=== PATIENT | female | born 1955 | race Caucasian/White ===

== ENCOUNTER → 2016-07-22 | Outpatient (CLI) | payer MEDICARE, OTHER ==
[~2016-07-22] VITALS: Ht 144.8 cm; Wt 67.5 kg
[~2016-07-22] MED LIST: AMIO200T2 PO; ATOR20TA86 PO; CALC667C PO; CHOL10002 PO; FOLI1CAP24 PO; FOLI1TAB15 PO; OMEP20 PO; SITA25 PO; SODI650T PO; WARF1 PO
[2016-07-22 14:59] VITALS: BP 130/66
== END | disposition home or self-care (01) ==
LOC: SRCNTR 14:49
PROVIDERS: ATTEND Internal Medicine Cardiovascular Disease
DX: E11.9 Type 2 diabetes mellitus without complications (principal); N18.6 End stage renal disease; I48.0 Paroxysmal atrial fibrillation; Z99.2 Dependence on renal dialysis; Z95.0 Presence of cardiac pacemaker; Z86.711 Personal history of pulmonary embolism; Z79.01 Long term (current) use of anticoagulants
CPT/HCPCS: 85610; G0463

== ENCOUNTER → 2016-09-14 | Outpatient (CLI) | payer MEDICARE, OTHER ==
[2016-09-14 15:40] VITALS: BP 107/47
== END | disposition home or self-care (01) ==
LOC: SRCNTR 13:54
PROVIDERS: ATTEND Internal Medicine Cardiovascular Disease
DX: Z45.018 Encounter for adjustment and management of other part of cardiac pacemaker (principal)
CPT/HCPCS: G0463

== ENCOUNTER → 2016-09-23 | Outpatient (CLI) | payer MEDICARE, OTHER ==
[~2016-09-23] VITALS: Ht 144.8 cm; Wt 68.0 kg
[2016-09-23 14:42] VITALS: BP 120/59
== END | disposition home or self-care (01) ==
LOC: SRCNTR 14:05
PROVIDERS: ATTEND Internal Medicine Cardiovascular Disease
DX: E11.22 Type 2 diabetes mellitus with diabetic chronic kidney disease (principal); N18.6 End stage renal disease; I48.0 Paroxysmal atrial fibrillation; E78.5 Hyperlipidemia, unspecified; Z95.0 Presence of cardiac pacemaker; Z79.01 Long term (current) use of anticoagulants; Z86.711 Personal history of pulmonary embolism
CPT/HCPCS: G0463

== ENCOUNTER → 2016-11-30 | Outpatient (CLI) | payer MEDICARE, OTHER ==
[~2016-11-30] VITALS: Ht 144.8 cm; Wt 67.8 kg
[~2016-11-30] MED LIST changes: +CEPH500 PO
[2016-11-30 15:01] VITALS: BP 116/54
== END | disposition home or self-care (01) ==
LOC: SRCNTR 14:54
PROVIDERS: ATTEND Internal Medicine Cardiovascular Disease
DX: E11.22 Type 2 diabetes mellitus with diabetic chronic kidney disease (principal); N18.6 End stage renal disease; I48.0 Paroxysmal atrial fibrillation; E78.5 Hyperlipidemia, unspecified; Z99.2 Dependence on renal dialysis; Z86.711 Personal history of pulmonary embolism; Z79.01 Long term (current) use of anticoagulants
CPT/HCPCS: 85610; G0463

== ENCOUNTER → 2017-02-01 | Outpatient (CLI) | payer MEDICARE, OTHER ==
[~2017-02-01] VITALS: Ht 144.8 cm; Wt 68.0 kg
[2017-02-01 14:18] VITALS: BP 101/44
== END | disposition home or self-care (01) ==
LOC: SRCNTR 14:06
PROVIDERS: ATTEND Internal Medicine Cardiovascular Disease
DX: E11.22 Type 2 diabetes mellitus with diabetic chronic kidney disease (principal); N18.6 End stage renal disease; E78.5 Hyperlipidemia, unspecified; I48.0 Paroxysmal atrial fibrillation; Z79.01 Long term (current) use of anticoagulants; Z86.711 Personal history of pulmonary embolism; Z95.0 Presence of cardiac pacemaker
CPT/HCPCS: G0463

== ENCOUNTER → 2017-03-17 | Outpatient (CLI) | payer MEDICARE, OTHER ==
[~2017-03-17] VITALS: Ht 144.8 cm; Wt 68.0 kg
[2017-03-17 14:18] VITALS: BP 121/54
== END | disposition home or self-care (01) ==
LOC: SRCNTR 14:01
PROVIDERS: ATTEND Internal Medicine Cardiovascular Disease
DX: Z45.018 Encounter for adjustment and management of other part of cardiac pacemaker (principal)
CPT/HCPCS: 93288; G0463

== ENCOUNTER → 2017-04-05 | Outpatient (CLI) | payer MEDICARE, OTHER ==
[~2017-04-05] VITALS: Ht 144.8 cm; Wt 68.0 kg
[2017-04-05 14:04] VITALS: BP 120/55
== END | disposition home or self-care (01) ==
LOC: SRCNTR 13:54
PROVIDERS: ATTEND Internal Medicine Cardiovascular Disease
DX: E11.22 Type 2 diabetes mellitus with diabetic chronic kidney disease (principal); N18.6 End stage renal disease; I48.0 Paroxysmal atrial fibrillation; Z95.0 Presence of cardiac pacemaker; E78.5 Hyperlipidemia, unspecified; Z99.2 Dependence on renal dialysis; Z79.01 Long term (current) use of anticoagulants; Z86.711 Personal history of pulmonary embolism
CPT/HCPCS: 85610; G0463

== ENCOUNTER → 2017-05-24 | Outpatient (CLI) | payer MEDICARE, OTHER | END | disposition home or self-care (01) | LOC: RADPV 14:49 | PROVIDERS: ATTEND Podiatrist Foot & Ankle Surgery | DX: S92.352A Displaced fracture of fifth metatarsal bone, left foot, initial encounter for closed fracture (principal); X58.XXXA Exposure to other specified factors, initial encounter; Y93.89 Activity, other specified; Y92.89 Other specified places as the place of occurrence of the external cause; Y99.8 Other external cause status ==

== ENCOUNTER → 2017-06-21 | Outpatient (CLI) | payer MEDICARE, OTHER ==
[~2017-06-21] VITALS: Ht 144.8 cm; Wt 68.0 kg
[2017-06-21 14:23] VITALS: BP 120/56
== END | disposition home or self-care (01) ==
LOC: SRCNTR 14:13
PROVIDERS: ATTEND Internal Medicine Cardiovascular Disease
DX: E11.22 Type 2 diabetes mellitus with diabetic chronic kidney disease (principal); N18.6 End stage renal disease; E78.5 Hyperlipidemia, unspecified; I48.0 Paroxysmal atrial fibrillation; Z79.01 Long term (current) use of anticoagulants; Z86.711 Personal history of pulmonary embolism; Z99.2 Dependence on renal dialysis
CPT/HCPCS: 85610; G0463

== ENCOUNTER → 2017-09-13 | Outpatient (CLI) | payer MEDICARE, OTHER ==
[~2017-09-13] VITALS: Ht 157.5 cm; Wt 56.0 kg
[2017-09-13 14:43] VITALS: BP 106/51
== END | disposition home or self-care (01) ==
LOC: SRCNTR 14:31
PROVIDERS: ATTEND Internal Medicine Cardiovascular Disease
DX: Z45.018 Encounter for adjustment and management of other part of cardiac pacemaker (principal)
CPT/HCPCS: G0463

== ENCOUNTER → 2018-03-21 | Outpatient (CLI) | payer MEDICARE, OTHER ==
[~2018-03-21] VITALS: Ht 144.8 cm; Wt 66.5 kg
[~2018-03-21] MED LIST changes: -AMIO200T2 PO; +AMIO200T5 PO
[2018-03-21 14:35] VITALS: BP 138/55
== END | disposition home or self-care (01) ==
LOC: SRCNTR 14:05
PROVIDERS: ATTEND Internal Medicine Cardiovascular Disease
DX: I12.0 Hypertensive chronic kidney disease with stage 5 chronic kidney disease or end stage renal disease (principal); E11.22 Type 2 diabetes mellitus with diabetic chronic kidney disease; N18.6 End stage renal disease; I48.0 Paroxysmal atrial fibrillation; E78.5 Hyperlipidemia, unspecified; Z95.0 Presence of cardiac pacemaker; Z86.711 Personal history of pulmonary embolism; Z79.01 Long term (current) use of anticoagulants
CPT/HCPCS: 85610; G0463

== ENCOUNTER → 2018-03-23 | Outpatient (CLI) | payer MEDICARE, OTHER ==
[~2018-03-23] VITALS: Ht 154.9 cm; Wt 67.5 kg
[2018-03-23 15:04] VITALS: BP 148/76
== END | disposition home or self-care (01) ==
LOC: SRCNTR 14:27
PROVIDERS: ATTEND Internal Medicine Cardiovascular Disease
DX: Z45.018 Encounter for adjustment and management of other part of cardiac pacemaker (principal)
CPT/HCPCS: G0463

== ENCOUNTER → 2018-05-23 | Outpatient (CLI) | payer MEDICARE, OTHER ==
[~2018-05-23] VITALS: Ht 144.8 cm; Wt 70.0 kg
[2018-05-23 14:43] VITALS: BP 132/54
== END | disposition home or self-care (01) ==
LOC: SRCNTR 14:42
PROVIDERS: ATTEND Internal Medicine Cardiovascular Disease
DX: I12.0 Hypertensive chronic kidney disease with stage 5 chronic kidney disease or end stage renal disease (principal); E11.22 Type 2 diabetes mellitus with diabetic chronic kidney disease; N18.6 End stage renal disease; I48.91 Unspecified atrial fibrillation; E78.5 Hyperlipidemia, unspecified; Z95.0 Presence of cardiac pacemaker; Z88.8 Allergy status to other drugs, medicaments and biological substances
CPT/HCPCS: G0463

== ENCOUNTER → 2018-07-25 | Outpatient (CLI) | payer MEDICARE, OTHER ==
[~2018-07-25] VITALS: Ht 144.8 cm; Wt 70.0 kg
[2018-07-25 14:22] VITALS: BP 131/65
== END | disposition home or self-care (01) ==
LOC: SRCNTR 14:21
PROVIDERS: ATTEND Internal Medicine Cardiovascular Disease
DX: E78.5 Hyperlipidemia, unspecified (principal); I48.91 Unspecified atrial fibrillation; I12.9 Hypertensive chronic kidney disease with stage 1 through stage 4 chronic kidney disease, or unspecified chronic kidney disease; E11.22 Type 2 diabetes mellitus with diabetic chronic kidney disease; N18.9 Chronic kidney disease, unspecified; Z95.0 Presence of cardiac pacemaker
CPT/HCPCS: 85610; G0463

== ENCOUNTER → 2019-06-12 | Outpatient (CLI) | payer MEDICARE, OTHER ==
[~2019-06-12] VITALS: Ht 144.8 cm; Wt 67.0 kg
[~2019-06-12] MED LIST changes: -CEPH500 PO; -OMEP20 PO; -SODI650T PO
[2019-06-12 14:13] VITALS: BP 139/53
== END | disposition home or self-care (01) ==
LOC: SRCNTR 14:12
PROVIDERS: ATTEND Internal Medicine Cardiovascular Disease
DX: J96.00 Acute respiratory failure, unspecified whether with hypoxia or hypercapnia (principal); I49.8 Other specified cardiac arrhythmias; E87.5 Hyperkalemia; E11.22 Type 2 diabetes mellitus with diabetic chronic kidney disease; I12.0 Hypertensive chronic kidney disease with stage 5 chronic kidney disease or end stage renal disease; N18.6 End stage renal disease; Z86.718 Personal history of other venous thrombosis and embolism
CPT/HCPCS: G0463

== ENCOUNTER → 2019-12-25 | Outpatient (CLI) | payer MEDICARE, OTHER ==
[~2019-12-25] VITALS: Ht 147.3 cm; Wt 63.8 kg
[~2019-12-25] MED LIST changes: -WARF1 PO; +WARF1TAB9 PO
[2019-12-25 15:10] VITALS: BP 115/55
== END | disposition home or self-care (01) ==
LOC: SRCNTR 14:19
PROVIDERS: ATTEND Internal Medicine Cardiovascular Disease
DX: Z45.018 Encounter for adjustment and management of other part of cardiac pacemaker (principal)
CPT/HCPCS: G0463

== ENCOUNTER → 2020-02-19 | Outpatient (CLI) | payer MEDICARE, OTHER ==
[~2020-02-19] VITALS: Ht 144.8 cm; Wt 64.0 kg
[~2020-02-19] MED LIST changes: -AMIO200T5 PO; +AMIO200T6 PO; +SEVE800T17 PO
[2020-02-19 14:21] VITALS: BP 136/58
== END | disposition home or self-care (01) ==
LOC: SRCNTR 14:20
PROVIDERS: ATTEND Internal Medicine Cardiovascular Disease
DX: E11.22 Type 2 diabetes mellitus with diabetic chronic kidney disease (principal); N18.6 End stage renal disease; I48.0 Paroxysmal atrial fibrillation; E78.5 Hyperlipidemia, unspecified; Z99.2 Dependence on renal dialysis
CPT/HCPCS: G0463

== ENCOUNTER → 2020-04-17 | Outpatient (CLI) | payer MEDICARE, OTHER ==
[~2020-04-17] VITALS: Ht 144.8 cm; Wt 64.5 kg
[~2020-04-17] MED LIST changes: -CALC667C PO; -FOLI1CAP24 PO; +SODI650T33 PO
[2020-04-17 14:40] VITALS: BP 133/55
== END | disposition home or self-care (01) ==
LOC: SRCNTR 14:12
PROVIDERS: ATTEND Internal Medicine Cardiovascular Disease
DX: N18.6 End stage renal disease (principal); E78.5 Hyperlipidemia, unspecified; E11.22 Type 2 diabetes mellitus with diabetic chronic kidney disease; Z95.0 Presence of cardiac pacemaker
CPT/HCPCS: 85610; G0463

== ENCOUNTER → 2020-06-19 | Outpatient (CLI) | payer MEDICARE, OTHER ==
[~2020-06-19] VITALS: Ht 144.8 cm; Wt 63.4 kg
[2020-06-19 14:32] VITALS: BP 145/106
== END | disposition home or self-care (01) ==
LOC: SRCNTR 14:06
PROVIDERS: ATTEND Internal Medicine Cardiovascular Disease
DX: I12.0 Hypertensive chronic kidney disease with stage 5 chronic kidney disease or end stage renal disease (principal); E11.22 Type 2 diabetes mellitus with diabetic chronic kidney disease; N18.6 End stage renal disease; I48.0 Paroxysmal atrial fibrillation; Z86.711 Personal history of pulmonary embolism; Z99.2 Dependence on renal dialysis
CPT/HCPCS: 85610; G0463

== ENCOUNTER → 2020-08-19 | Outpatient (CLI) | payer MEDICARE, OTHER ==
[~2020-08-19] VITALS: Ht 144.8 cm; Wt 67.3 kg
[~2020-08-19] MED LIST changes: -SODI650T33 PO
[2020-08-19 14:29] VITALS: BP 118/60
== END | disposition home or self-care (01) ==
LOC: SRCNTR 14:04
PROVIDERS: ATTEND Internal Medicine Cardiovascular Disease
DX: I48.0 Paroxysmal atrial fibrillation (principal); I12.0 Hypertensive chronic kidney disease with stage 5 chronic kidney disease or end stage renal disease; E11.22 Type 2 diabetes mellitus with diabetic chronic kidney disease; N18.6 End stage renal disease; Z99.2 Dependence on renal dialysis; I26.99 Other pulmonary embolism without acute cor pulmonale
CPT/HCPCS: 85610; G0463

== ENCOUNTER → 2020-10-21 | Outpatient (CLI) | payer MEDICARE, OTHER ==
[~2020-10-21] VITALS: Ht 144.8 cm; Wt 66.5 kg
[2020-10-21 14:21] VITALS: BP 124/54
== END | disposition home or self-care (01) ==
LOC: SRCNTR 13:57
PROVIDERS: ATTEND Internal Medicine Cardiovascular Disease
DX: I12.0 Hypertensive chronic kidney disease with stage 5 chronic kidney disease or end stage renal disease (principal); E11.22 Type 2 diabetes mellitus with diabetic chronic kidney disease; N18.6 End stage renal disease; E78.5 Hyperlipidemia, unspecified; I26.99 Other pulmonary embolism without acute cor pulmonale; I48.0 Paroxysmal atrial fibrillation; Z79.01 Long term (current) use of anticoagulants; Z99.2 Dependence on renal dialysis
CPT/HCPCS: 85610; G0463

== ENCOUNTER → 2021-01-06 | Outpatient (CLI) | payer MEDICARE, OTHER ==
[~2021-01-06] VITALS: Ht 144.8 cm; Wt 67.3 kg
[~2021-01-06] MED LIST changes: -AMIO200T6 PO
[2021-01-06 14:18] VITALS: BP 147/70
== END | disposition home or self-care (01) ==
LOC: SRCNTR 14:03
PROVIDERS: ATTEND Internal Medicine Cardiovascular Disease
DX: Z45.010 Encounter for checking and testing of cardiac pacemaker pulse generator [battery] (principal)
CPT/HCPCS: G0463

== ENCOUNTER → 2021-01-13 | Outpatient (CLI) | payer MEDICARE, OTHER ==
[~2021-01-13] VITALS: Ht 144.8 cm; Wt 67.3 kg
[2021-01-13 14:55] VITALS: BP 140/60
== END | disposition home or self-care (01) ==
LOC: SRCNTR 14:31
PROVIDERS: ATTEND Internal Medicine Cardiovascular Disease
DX: I12.0 Hypertensive chronic kidney disease with stage 5 chronic kidney disease or end stage renal disease (principal); E11.22 Type 2 diabetes mellitus with diabetic chronic kidney disease; N18.6 End stage renal disease; I26.99 Other pulmonary embolism without acute cor pulmonale; E78.5 Hyperlipidemia, unspecified; I48.0 Paroxysmal atrial fibrillation; Z79.01 Long term (current) use of anticoagulants; Z99.2 Dependence on renal dialysis
CPT/HCPCS: 85610; G0463

== ENCOUNTER → 2021-10-20 | Outpatient (CLI) | payer MEDICARE, OTHER ==
[~2021-10-20] VITALS: Ht 142.2 cm; Wt 65.0 kg
[~2021-10-20] MED LIST changes: +AMLO-257 PO
[2021-10-20 14:27] VITALS: BP 146/65
== END | disposition home or self-care (01) ==
LOC: SRCNTR 14:09
PROVIDERS: ATTEND Internal Medicine Cardiovascular Disease
DX: Z09 Encounter for follow-up examination after completed treatment for conditions other than malignant neoplasm (principal); I12.0 Hypertensive chronic kidney disease with stage 5 chronic kidney disease or end stage renal disease; E11.22 Type 2 diabetes mellitus with diabetic chronic kidney disease; N18.6 End stage renal disease; I48.0 Paroxysmal atrial fibrillation; E78.5 Hyperlipidemia, unspecified; Z99.2 Dependence on renal dialysis; Z95.0 Presence of cardiac pacemaker; Z86.711 Personal history of pulmonary embolism
CPT/HCPCS: 85610; G0463

== ENCOUNTER → 2021-10-27 | Outpatient (CLI) | payer MEDICARE, OTHER ==
[2021-10-27 15:36] VITALS: BP 134/58
== END | disposition home or self-care (01) ==
LOC: SRCNTR 13:58
PROVIDERS: ATTEND Internal Medicine Cardiovascular Disease
DX: Z45.010 Encounter for checking and testing of cardiac pacemaker pulse generator [battery] (principal)
CPT/HCPCS: G0463

== ENCOUNTER → 2021-12-22 | Outpatient (CLI) | payer MEDICARE, OTHER ==
[~2021-12-22] MED LIST changes: +WARF2TAB30 PO
[2021-12-22 14:27] VITALS: BP 139/62
== END | disposition home or self-care (01) ==
LOC: SRCNTR 14:10
PROVIDERS: ATTEND Internal Medicine Cardiovascular Disease
DX: I12.0 Hypertensive chronic kidney disease with stage 5 chronic kidney disease or end stage renal disease (principal); E11.22 Type 2 diabetes mellitus with diabetic chronic kidney disease; N18.6 End stage renal disease; Z09 Encounter for follow-up examination after completed treatment for conditions other than malignant neoplasm; I48.0 Paroxysmal atrial fibrillation; E78.5 Hyperlipidemia, unspecified; Z99.2 Dependence on renal dialysis; Z95.0 Presence of cardiac pacemaker; Z86.711 Personal history of pulmonary embolism
CPT/HCPCS: 85610; G0463

== ENCOUNTER → 2022-01-26 | Outpatient (CLI) | payer MEDICARE, OTHER ==
[2022-01-26 14:16] VITALS: BP 136/62
== END | disposition home or self-care (01) ==
LOC: SRCNTR 13:55
PROVIDERS: ATTEND Internal Medicine Cardiovascular Disease
DX: Z45.010 Encounter for checking and testing of cardiac pacemaker pulse generator [battery] (principal)
CPT/HCPCS: 93288; G0463

== ENCOUNTER → 2022-02-23 | Outpatient (CLI) | payer MEDICARE, OTHER ==
[~2022-02-23] VITALS: Ht 142.2 cm; Wt 66.0 kg
[2022-02-23 14:18] VITALS: BP 134/61
== END | disposition home or self-care (01) ==
LOC: SRCNTR 14:01
PROVIDERS: ATTEND Internal Medicine Cardiovascular Disease
DX: I12.0 Hypertensive chronic kidney disease with stage 5 chronic kidney disease or end stage renal disease (principal); E11.22 Type 2 diabetes mellitus with diabetic chronic kidney disease; N18.6 End stage renal disease; Z09 Encounter for follow-up examination after completed treatment for conditions other than malignant neoplasm; I48.0 Paroxysmal atrial fibrillation; E78.5 Hyperlipidemia, unspecified; Z99.2 Dependence on renal dialysis; Z95.0 Presence of cardiac pacemaker; Z86.711 Personal history of pulmonary embolism
CPT/HCPCS: 85610; G0463

== ENCOUNTER → 2022-05-04 | Outpatient (CLI) | payer MEDICARE, OTHER ==
[2022-05-04 14:24] VITALS: BP 136/56
== END | disposition home or self-care (01) ==
LOC: SRCNTR 14:03
PROVIDERS: ATTEND Internal Medicine Cardiovascular Disease
DX: Z45.010 Encounter for checking and testing of cardiac pacemaker pulse generator [battery] (principal)
CPT/HCPCS: G0463

== ENCOUNTER → 2022-08-03 | Outpatient (CLI) | payer MEDICARE, OTHER ==
[~2022-08-03] VITALS: Ht 144.8 cm; Wt 64.0 kg
[~2022-08-03] MED LIST changes: +B CO1CAP6 PO
[2022-08-03 14:17] VITALS: BP 147/66
== END | disposition home or self-care (01) ==
LOC: SRCNTR 13:52
PROVIDERS: ATTEND Internal Medicine Cardiovascular Disease
DX: Z45.010 Encounter for checking and testing of cardiac pacemaker pulse generator [battery] (principal)
CPT/HCPCS: G0463; Z7500

== ENCOUNTER → 2022-08-10 | Outpatient (CLI) | payer MEDICARE, OTHER ==
[~2022-08-10] VITALS: Ht 144.8 cm; Wt 65.0 kg
[2022-08-10 15:20] VITALS: BP 144/67
== END | disposition home or self-care (01) ==
LOC: SRCNTR 14:59
PROVIDERS: ATTEND Internal Medicine Cardiovascular Disease
DX: Z09 Encounter for follow-up examination after completed treatment for conditions other than malignant neoplasm (principal); I48.0 Paroxysmal atrial fibrillation; I10 Essential (primary) hypertension; E11.9 Type 2 diabetes mellitus without complications; E78.5 Hyperlipidemia, unspecified; Z95.0 Presence of cardiac pacemaker; Z86.711 Personal history of pulmonary embolism
CPT/HCPCS: 85610; G0463

== ENCOUNTER → 2022-10-12 | Outpatient (CLI) | payer MEDICARE, OTHER ==
[~2022-10-12] VITALS: Ht 144.8 cm; Wt 67.0 kg
[~2022-10-12] MED LIST changes: +ATOR20TA PO; -ATOR20TA86 PO; +GABA-1216 PO
[2022-10-12 14:27] VITALS: BP 150/66
== END | disposition home or self-care (01) ==
LOC: SRCNTR 14:02
PROVIDERS: ATTEND Internal Medicine Cardiovascular Disease
DX: I12.0 Hypertensive chronic kidney disease with stage 5 chronic kidney disease or end stage renal disease (principal); E11.22 Type 2 diabetes mellitus with diabetic chronic kidney disease; N18.6 End stage renal disease; Z09 Encounter for follow-up examination after completed treatment for conditions other than malignant neoplasm; I48.0 Paroxysmal atrial fibrillation; E78.5 Hyperlipidemia, unspecified; Z99.2 Dependence on renal dialysis; Z79.01 Long term (current) use of anticoagulants; Z95.0 Presence of cardiac pacemaker; Z86.711 Personal history of pulmonary embolism
CPT/HCPCS: 85610; G0463

== ENCOUNTER → 2022-11-02 | Outpatient (CLI) | payer MEDICARE, OTHER ==
[~2022-11-02] VITALS: Ht 144.8 cm; Wt 66.0 kg
[2022-11-02 14:17] VITALS: BP 141/62; PULSE 88; RESP 18; TEMP 98; O2SAT 99
== END | disposition home or self-care (01) ==
LOC: SRCNTR 13:52
PROVIDERS: ATTEND Internal Medicine Cardiovascular Disease
DX: Z45.010 Encounter for checking and testing of cardiac pacemaker pulse generator [battery] (principal)
CPT/HCPCS: G0463; Z7500

== ENCOUNTER → 2022-11-16 | Outpatient (CLI) | payer MEDICARE, OTHER ==
[~2022-11-16] VITALS: Ht 144.8 cm; Wt 66.0 kg
[~2022-11-16] MED LIST changes: +WARF2TAB10 PO; -WARF2TAB30 PO
[2022-11-16 15:36] VITALS: BP 149/59; PULSE 83; RESP 16; TEMP 98.6; O2SAT 97
== END | disposition home or self-care (01) ==
LOC: SRCNTR 15:15
PROVIDERS: ATTEND Internal Medicine Cardiovascular Disease
DX: I12.0 Hypertensive chronic kidney disease with stage 5 chronic kidney disease or end stage renal disease (principal); E11.22 Type 2 diabetes mellitus with diabetic chronic kidney disease; N18.6 End stage renal disease; I48.0 Paroxysmal atrial fibrillation; E78.5 Hyperlipidemia, unspecified; Z79.01 Long term (current) use of anticoagulants; Z95.4 Presence of other heart-valve replacement; Z86.711 Personal history of pulmonary embolism
CPT/HCPCS: 85610; G0463

== ENCOUNTER → 2022-12-14 | Outpatient (CLI) | payer MEDICARE, OTHER ==
[~2022-12-14] VITALS: Ht 144.8 cm; Wt 66.0 kg
[2022-12-14 14:31] VITALS: BP 149/55; PULSE 86; RESP 20; TEMP 98.2; O2SAT 100
== END | disposition home or self-care (01) ==
LOC: SRCNTR 14:20
PROVIDERS: ATTEND Internal Medicine Cardiovascular Disease
DX: I12.0 Hypertensive chronic kidney disease with stage 5 chronic kidney disease or end stage renal disease (principal); E11.22 Type 2 diabetes mellitus with diabetic chronic kidney disease; N18.6 End stage renal disease; Z09 Encounter for follow-up examination after completed treatment for conditions other than malignant neoplasm; I48.0 Paroxysmal atrial fibrillation; E78.5 Hyperlipidemia, unspecified; Z95.0 Presence of cardiac pacemaker; Z99.2 Dependence on renal dialysis; Z79.01 Long term (current) use of anticoagulants; Z86.711 Personal history of pulmonary embolism
CPT/HCPCS: 85610; G0463

== ENCOUNTER → 2023-01-18 | Outpatient (CLI) | payer MEDICARE, OTHER ==
[~2023-01-18] MED LIST changes: -WARF2TAB10 PO
[2023-01-18 15:26] VITALS: BP 131/55; PULSE 78; RESP 18; TEMP 98.8; O2SAT 98
== END | disposition home or self-care (01) ==
LOC: SRCNTR 14:15
PROVIDERS: ATTEND Internal Medicine Cardiovascular Disease
DX: Z45.010 Encounter for checking and testing of cardiac pacemaker pulse generator [battery] (principal)
CPT/HCPCS: G0463; Z7500

== ENCOUNTER → 2023-02-15 | Outpatient (CLI) | payer MEDICARE, OTHER ==
[~2023-02-15] VITALS: Ht 144.8 cm; Wt 65.0 kg
[2023-02-15 14:58] VITALS: BP 143/64; PULSE 80; RESP 18; TEMP 98.2; O2SAT 97
== END | disposition home or self-care (01) ==
LOC: SRCNTR 14:21
PROVIDERS: ATTEND Internal Medicine Cardiovascular Disease
DX: I12.0 Hypertensive chronic kidney disease with stage 5 chronic kidney disease or end stage renal disease (principal); E11.22 Type 2 diabetes mellitus with diabetic chronic kidney disease; N18.6 End stage renal disease; Z09 Encounter for follow-up examination after completed treatment for conditions other than malignant neoplasm; I48.0 Paroxysmal atrial fibrillation; E78.5 Hyperlipidemia, unspecified; Z99.2 Dependence on renal dialysis; Z95.0 Presence of cardiac pacemaker; Z79.01 Long term (current) use of anticoagulants; Z86.711 Personal history of pulmonary embolism
CPT/HCPCS: 85610; G0463

== ENCOUNTER → 2023-04-19 | Outpatient (CLI) | payer MEDICARE, OTHER ==
[~2023-04-19] VITALS: Ht 144.8 cm; Wt 65.0 kg
[2023-04-19 15:19] VITALS: BP 145/60; PULSE 80; RESP 16; TEMP 98.5; O2SAT 99
== END | disposition home or self-care (01) ==
LOC: SRCNTR 14:54
PROVIDERS: ATTEND Internal Medicine Cardiovascular Disease
DX: Z09 Encounter for follow-up examination after completed treatment for conditions other than malignant neoplasm (principal); I12.0 Hypertensive chronic kidney disease with stage 5 chronic kidney disease or end stage renal disease; E11.22 Type 2 diabetes mellitus with diabetic chronic kidney disease; N18.6 End stage renal disease; I48.0 Paroxysmal atrial fibrillation; E78.5 Hyperlipidemia, unspecified; Z79.01 Long term (current) use of anticoagulants; Z95.0 Presence of cardiac pacemaker; Z99.2 Dependence on renal dialysis; Z86.711 Personal history of pulmonary embolism
CPT/HCPCS: 85610; G0463

== ENCOUNTER → 2023-05-17 | Outpatient (CLI) | payer MEDICARE, OTHER ==
[~2023-05-17] MED LIST changes: -SEVE800T17 PO; +SEVE800T38 PO
== END | disposition still patient (30) ==
LOC: RADPV 08:54
PROVIDERS: ATTEND Internal Medicine Cardiovascular Disease
DX: I08.1 Rheumatic disorders of both mitral and tricuspid valves (principal); E11.22 Type 2 diabetes mellitus with diabetic chronic kidney disease; N18.6 End stage renal disease
CPT/HCPCS: 93306

== ENCOUNTER → 2023-06-21 | Outpatient (CLI) | payer MEDICARE, OTHER ==
[~2023-06-21] VITALS: Ht 144.8 cm; Wt 65.0 kg
[~2023-06-21] MED LIST changes: +AMIO200T68 PO
[2023-06-21 14:31] VITALS: BP 156/73; PULSE 88; RESP 18; TEMP 98.1; O2SAT 99
== END | disposition home or self-care (01) ==
LOC: SRCNTR 14:15
PROVIDERS: ATTEND Internal Medicine Cardiovascular Disease
DX: Z09 Encounter for follow-up examination after completed treatment for conditions other than malignant neoplasm (principal); I12.0 Hypertensive chronic kidney disease with stage 5 chronic kidney disease or end stage renal disease; E11.22 Type 2 diabetes mellitus with diabetic chronic kidney disease; N18.6 End stage renal disease; I48.0 Paroxysmal atrial fibrillation; E78.5 Hyperlipidemia, unspecified; Z99.2 Dependence on renal dialysis; Z79.01 Long term (current) use of anticoagulants; Z95.0 Presence of cardiac pacemaker; Z86.711 Personal history of pulmonary embolism
CPT/HCPCS: 85610; G0463

== ENCOUNTER → 2023-07-19 | Outpatient (CLI) | payer MEDICARE, OTHER ==
[~2023-07-19] VITALS: Ht 144.8 cm; Wt 66.5 kg
[2023-07-19 14:21] VITALS: BP 145/64; PULSE 82; RESP 18; TEMP 97.8; O2SAT 97
== END | disposition home or self-care (01) ==
LOC: SRCNTR 13:57
PROVIDERS: ATTEND Internal Medicine Cardiovascular Disease
DX: Z45.010 Encounter for checking and testing of cardiac pacemaker pulse generator [battery] (principal)
CPT/HCPCS: G0463; Z7500

== ENCOUNTER → 2023-08-23 | Outpatient (CLI) | payer MEDICARE, OTHER ==
[~2023-08-23] VITALS: Ht 144.8 cm; Wt 65.0 kg
[2023-08-23 14:54] VITALS: BP 144/60; PULSE 88; RESP 18; TEMP 98.3
== END | disposition home or self-care (01) ==
LOC: SRCNTR 14:37
PROVIDERS: ATTEND Internal Medicine Cardiovascular Disease
DX: I12.0 Hypertensive chronic kidney disease with stage 5 chronic kidney disease or end stage renal disease (principal); E11.22 Type 2 diabetes mellitus with diabetic chronic kidney disease; N18.6 End stage renal disease; I48.0 Paroxysmal atrial fibrillation; E78.5 Hyperlipidemia, unspecified; I26.99 Other pulmonary embolism without acute cor pulmonale; Z95.0 Presence of cardiac pacemaker; Z79.01 Long term (current) use of anticoagulants; Z88.8 Allergy status to other drugs, medicaments and biological substances; Z79.899 Other long term (current) drug therapy
CPT/HCPCS: 85610; G0463

== ENCOUNTER → 2024-01-17 | Outpatient (CLI) | payer MEDICARE, OTHER ==
[2024-01-17 14:56] VITALS: BP 127/62; PULSE 98; RESP 18; TEMP 98.8; O2SAT 100
== END | disposition home or self-care (01) ==
LOC: SRCNTR 14:09
PROVIDERS: ATTEND Internal Medicine Cardiovascular Disease
DX: Z45.010 Encounter for checking and testing of cardiac pacemaker pulse generator [battery] (principal)
CPT/HCPCS: G0463